=== PATIENT | female | born 1965 | race Two or more races ===

== ENCOUNTER → 2019-02-12 15:48 | Outpatient (CLI) | payer OTHER ==
[~2019-02-12 15:48] MED LIST: ALLEGRA-D1 TAB.SR1; AMOXICILLIN500 MG; CATAFLAM50 MG; PEMPRO; PROTONIX40 MG; SKELAXIN800 MG
== END | disposition home or self-care (01) ==
LOC: LAB 14:22
DX: K74.3 Primary biliary cirrhosis (principal); R77.2 Abnormality of alphafetoprotein

== ENCOUNTER 2019-03-26 09:28 | Outpatient (CLI) | payer OTHER | END 2019-03-26 09:36 | disposition home or self-care (01) | LOC: LAB 09:28 | DX: E11.69 Type 2 diabetes mellitus with other specified complication (principal) ==

== ENCOUNTER 2023-03-02 08:54 | Outpatient (CLI) | payer OTHER ==
[2023-03-02 10:26] LABS: URINE APPEARANCE Clear; URINE BILIRRUBIN Negative (NEGATIVE); URINE BLOOD Trace; URINE COLOR Yellow; URINE GLUCOSE Negative (NEGATIVE); URINE LEUKOCYTE Small; URINE NITRATE Negative; URINE PROTEIN Negative (NEGATIVE); URINE UROBILINOGEN 0.2 E.U./dl
[2023-03-02 10:30] LABS: URINE BACTERIA 31.4 uL (0.0-1933); URINE EPITHELIAL CELLS 13.7 uL (0.0-38.8); URINE RBC 6.3 uL (0.0-20.8); URINE WBC 12.6 uL (0.0-23.2)
[2023-03-02 10:30] LABS: HEMATOCRIT 37.2 % (36.0-45.00); HEMOGLOBIN 12.3 g/dL (12.0-15.00); MEAN CELL VOLUME 83.8 fL (80.00-100.00); MEAN CORPUSCULAR HEMOGLOBIN 27.7 pg (27.00-32.0); MEAN CORPUSCULAR HGB CONC 33.1 g/dl (32.0-36.0); PLATELET COUNT 251 K/uL (150-450); RED BLOOD COUNT 4.43 M/uL (4.00-6.00); RED CELL DISTRIBUTION WIDTH 14.3 % (11.5-14.5)
[2023-03-02 11:05] LABS: ALBUMIN 3.6 gm/dL (3.4-5.0); BILIRUBIN TOTAL 0.32 mg/dL (0.3-1.2); CALCIUM 9.5 mg/dL (8.5-10.1); CHOL HDL RATIO 2.1 (0-5.0); CREATININE SERUM 0.68 mg/dL (0.55-1.02); FREE TRIODOTIRONINE 2.15 pg/ml (2.18-3.98); GFR 89.5; GLOBULINA 3.3 G/DL (2.4-3.5); POTASSIUM 4.29 mEq/L (3.5-5.1); T4 FREE 0.93 NG/ML (0.76-1.46); TOTAL PROTEIN 6.9 gm/dL (6.4-8.2); TSH 0.596 uIU/mL (0.358-3.74)
== END 2023-03-02 09:09 | disposition home or self-care (01) ==
LOC: LAB 08:54
PROVIDERS: ATTEND Specialist
DX: E03.8 Other specified hypothyroidism (principal); E55.9 Vitamin D deficiency, unspecified; Z13.220 Encounter for screening for lipoid disorders; E11.69 Type 2 diabetes mellitus with other specified complication; E11.21 Type 2 diabetes mellitus with diabetic nephropathy; N39.9 Disorder of urinary system, unspecified; D64.89 Other specified anemias

== ENCOUNTER 2023-03-02 10:35 | Outpatient (CLI) | payer OTHER | END 2023-03-02 10:48 | disposition home or self-care (01) | LOC: TOM 10:35 | PROVIDERS: ATTEND Specialist | DX: J47.9 Bronchiectasis, uncomplicated (principal) ==

== ENCOUNTER 2024-03-09 20:46 | Emergency (ER) | payer OTHER ==
[~2024-03-09] VITALS: Ht 172.7 cm; Wt 87.5 kg
[2024-03-09] MEDS ORDERED: TRELEGY ELLIPT1 EACH IH (21:01)
[2024-03-09] MEDS ORDERED: ACID CONTROLLER10 MG PO (21:01)
[2024-03-09] MEDS ORDERED: COZAAR25 MG PO (21:01)
[2024-03-09] MEDS ORDERED: JANUMET 50-1,01 EACH PO (21:02)
[2024-03-09] MEDS ORDERED: ZETIA10 MG PO (21:02)
[2024-03-09] MEDS ORDERED: ESCITALOPRAM OX10 MG PO (21:03)
[2024-03-09] MEDS ORDERED: YUVAFEM10 MCG VAG (21:03)
[2024-03-09] MEDS ORDERED: KETOROLAC TROMETHAMINE 60 MG VIAL IM ONE (23:00)
[2024-03-09] MEDS ORDERED: DEXAMETHASONE SODIUM PHOSPHATE 4 MG/ML VIAL IM ONE (23:00)
== END 2024-03-09 23:43 | disposition home or self-care (01) ==
LOC: ER 20:48
DX: M75.52 Bursitis of left shoulder (principal); E11.9 Type 2 diabetes mellitus without complications; Z79.84 Long term (current) use of oral hypoglycemic drugs; Z88.9 Allergy status to unspecified drugs, medicaments and biological substances